=== PATIENT | male | born 1970 | race African-American/Black ===

== ENCOUNTER 2023-06-10 06:36 | Day surgery (SDC) | payer OTHER, SELFPAY ==
[2023-06-10 10:24] VITALS: BMI 43.6
[2023-06-10 10:47] VITALS: BP 160/98; BMI 43.6
[2023-06-10 13:55] VITALS: BP 144/99
[2023-06-10 14:10] VITALS: BP 146/100
[2023-06-10 14:25] VITALS: BP 158/80
== END 2023-06-10 14:25 | disposition home or self-care (01) ==
LOC: SDS 06:36
PROVIDERS: ATTENDING PHYSICIAN Internal Medicine Gastroenterology
DX: K64.9 Unspecified hemorrhoids (principal); K63.5 Polyp of colon; K62.89 Other specified diseases of anus and rectum; Z86.010 Personal history of colon polyps; Z98.890 Other specified postprocedural states
CPT/HCPCS: 43249; 45331; 88305

== ENCOUNTER 2024-06-05 12:01 | Day surgery (SDC) | payer OTHER, SELFPAY ==
[2024-06-05] VITALS (7 sets, daily range): BP systolic 94–107; BP diastolic 65–74
--- NOTE | 2024-06-05 08:16 | W.PN.CARDCBS ---
Today's Communication / Plan
-
LHC
Impression / Plan
-
This is the H&P summary.
Full H&P scanned into chart.
PCP: Macy Crews PA-C
CDY: Solomon Burton, DO
53 y/o AA male, PMH CAD w/prior LCx PCI (05/2021), HTN, HLD, morbid obesity, chronic angina but stopped amlodipine, isosorbide in March as he wanted to be on less medications. Last cath at 12/2022 with patent stent, mild non obstructive residual
CAD in LAD, RCA.
Presented to [facility] ER one day ago with substernal chest pressure, radiating to LUE and jaw, mild congestion with hypoxia, placed on supplemental oxygen. HS troponin minimally elevated w/peak 40, corresponding peak CK/MB 140/1.7. EKGs remain in NSR, no
acute changes. Started on heparin and nitro gtts. Continues to have chest pain/pressure, remains uncomfortable. Echo pending this morning.
Transferred for [facility] today.
IMPRESSION/PLAN
[place]/ACS
CAD, prior LCx PCI (05/2021)
Chronic microvascular angina
on heparin gtt, nitro gtt
[facility] today- not clearly ischemic in nature, unsure if there will be anything to intervene
aspirin today
continue metoprolol tartrate, ranolazine
plan pending results
cardiology followup w/Dr. Burton
Acute hypoxia, resolved
mild vascular congestion on CXR
SaO2 levels 92-98% on 2LNC, now on room air
echo pending this morning- no prior echo [facility]
not needing extra diuresis at this time
HTN- stable on current meds, will monitor
HLD- Lipids @[facility]- TC 198/TG 228/HDL 35/LDL 117
continue statin therapy w/atorvastatin 40/d- could push to 80/d
DM- HgbA1C
continue insulin therapy as per pcp
Anemia- chronic w/Hgb range 10-12
Morbid Obesity
Prior cocaine abuse, quit 2021
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
Subjective
Date of Service: June 05, 2024
[2024-06-05 12:39] LABS: Glucose - Point of Care 111 mg/dl (70-99)
--- NOTE | 2024-06-05 13:28 | ITS.CL.CATH ---
[facility] - Catheterization
Cardiac Catheterization
Procedure Report:
CARDIAC CATHETERIZATION REPORT
Date of Procedure: 06/05/2024
Referring: Yung Hernandez M.D.
INDICATION: Unstable angina/non-ST elevation myocardial infarction, assessment of volume status.
PROCEDURE:
1. Left heart catheterization.
2. Coronary angiography.
A total of 37 minutes of procedural/moderate sedation was utilized. An independent medical voucher clerk was present to assist with and help manage the patient's level of consciousness and physiologic status.
ACCESS:
1. 6 [place] right radial artery using a modified Seldinger technique.
CATHETERS:
1. 5 [place] JR4.
2. 5 [place] JL 3.5.
HEMODYNAMIC DATA
Weight (kg): 137.0
AO (s/d/x, mmHg): 104/81/93
LV (s/x mmHg): 106/20
LEFT VENTRICULOGRAPHY: Not performed.
CORONARY ANGIOGRAPHY
Dominance: Right.
Left Main: Normal size, bifurcating vessel. There is no coronary artery disease.
LAD: Normal size vessel giving rise to 1 significant diagonal. There are minor luminal irregularities in the LAD with a 30% lesion in the mid vessel. There is a 40% lesion in the proximal margin of the diagonal, unchanged from prior. Of note,
there is sluggish flow in the mid and distal LAD and spite of no epicardial stenosis, suggestive of potential endothelial dysfunction.
Ramus: Congenitally absent.
Circumflex: Large size, nondominant vessel giving rise to 1 obtuse marginal before terminating as a large left posterolateral branch. There are luminal irregularities throughout the body of the vessel. A patent stent is observed in the distal
circumflex, immediately after the origin of OM1 but before the turn of the artery into the posterolateral branch. There is no evidence of in-stent restenosis.
RCA: Normal size, dominant vessel. There are luminal irregularities.
INTERVENTION(S)
None.
Closure Device: Vascular band.
Radiation (mGy): 548.50
DAP (cm2.Gy): 40.6829
Fluoroscopy time (minutes): 2.7
CONCLUSIONS
1. Right dominant circulation with luminal irregularities throughout the entire coronary tree, a patent stent in the distal circumflex with no evidence of in-stent restenosis, a 30% lesion in the mid LAD, a 40% lesion in the proximal margin of the
diagonal, both of which are unchanged from prior cardiac catheterization in 2022, and sluggish flow in the mid and distal LAD in the absence of significant epicardial stenosis, suggestive of potential endothelial dysfunction.
2. Moderately elevated filling pressures (LVEDP = 20 mmHg at 137.0 kg).
RECOMMENDATIONS:
1. Expectant management after cardiac catheterization via right radial approach.
2. Limited weight bearing on the right wrist for one week.
3. Medical management and up titration of OMT, including an increase in long-acting nitrates given potential for endothelial dysfunction. Other possibilities would include an increase in amlodipine to 10 mg daily, addition of an [place] inhibitor or
uptitration of ranolazine to 1000 mg twice daily.
4. Start furosemide 40 mg p.o. daily. BMP in 1 week to monitor renal function and potassium levels.
5. Aggressive secondary prevention with high-dose, high potency statin. Goal LDL <55.
6. Discussion with [facility] cardiology and [facility] for potential return versus discharge.
Copy to: Yung Hernandez M.D., Solomon Burton D.O., Macy Crews PA-C
Darryl Santana DO, FACC, FACP
[2024-06-05] MEDS: NSS 1000 IV (13:34)
== END 2024-06-05 14:40 | disposition short-term general hospital (02) ==
LOC: CATH 12:01
PROVIDERS: ATTENDING PHYSICIAN Internal Medicine Cardiovascular Disease
DX: I21.4 Non-ST elevation (NSTEMI) myocardial infarction (principal); I25.10 Atherosclerotic heart disease of native coronary artery without angina pectoris; Z95.5 Presence of coronary angioplasty implant and graft; I10 Essential (primary) hypertension; E78.5 Hyperlipidemia, unspecified; E11.9 Type 2 diabetes mellitus without complications; E66.01 Morbid (severe) obesity due to excess calories; Z68.41 Body mass index [BMI] 40.0-44.9, adult; Z87.891 Personal history of nicotine dependence; F14.11 Cocaine abuse, in remission; Z79.82 Long term (current) use of aspirin; Z79.4 Long term (current) use of insulin; Z79.84 Long term (current) use of oral hypoglycemic drugs
CPT/HCPCS: 82962; 93458; C1894; Q9967

== ENCOUNTER → 2024-07-12 07:45 | Outpatient (REF) | payer OTHER, SELFPAY | LOC: PET 07:45 | PROVIDERS: ATTENDING PHYSICIAN Nurse Practitioner Acute Care | DX: C7A.8 Other malignant neuroendocrine tumors (principal) | CPT/HCPCS: 78815 ==